=== PATIENT | female | born 1930 | race Caucasian/White ===

== ENCOUNTER → 2018-04-16 | Outpatient (CLI) | payer MEDICARE | END | disposition home or self-care (01) | LOC: RAH 12:48 | PROVIDERS: ATTEND Internal Medicine | DX: R60.9 Edema, unspecified (principal); I10 Essential (primary) hypertension; E78.5 Hyperlipidemia, unspecified | CPT/HCPCS: 93971 ==

== ENCOUNTER 2018-12-09 08:09 | Emergency (ER) | payer MEDICARE ==
[2018-12-09] MEDS ORDERED: SODIUM CHLORIDE 0.9% 1000ML 1,000 ML IV ONE (08:46)
[2018-12-09] MEDS ORDERED: CEFTRIAXONE SODIUM 1 GM ONE (08:46)
[2018-12-09] MEDS ORDERED: KETOROLAC TROMETHAMINE 30MG/ML ONE (08:46)
[2018-12-09] MEDS ORDERED: SODIUM CHLORIDE 0.9% 100 ML IV ONE (08:47)
[2018-12-09 09:09] LABS: BASOPHILS % (AUTO) 0.4 % (0.0-5.0); EOSINOPHILS % (AUTO) 0.9 % (0.0-8.0); HEMATOCRIT 38.9 % (36-48); LYMPHOCYTES % (AUTO) 21.4 % (21.0-51.0); MEAN CORPUSCULAR HGB CONC 34.2 g/dL (32.0-36.0); MEAN CORPUSCULAR VOLUME 96.3 fL (79-99); MONOCYTES % (AUTO) 12.5 % (3.0-13.0); NEUTROPHILS % (AUTO) 64.8 % (40.0-77.0); PLATELET COUNT (AUTO) 164 K/uL (130-400); RED BLOOD CELL COUNT(AUTO) 4.04 MIL/uL (4.00-5.50); RED CELL DISTRIBUTION WIDTH 13.5 % (11.0-15.5); WHITE BLOOD COUNT (AUTO) 6.6 K/uL (4.8-10.8)
[2018-12-09 09:16] LABS: CREATININE 0.9 mg/dL (0.5-1.5); POTASSIUM 4.3 mmol/L (3.5-5.1)
[2018-12-10] MEDS ORDERED: SIMV40TA5 PO (09:40)
[2018-12-10] MEDS ORDERED: METO-408 PO (09:47)
[2018-12-10] MEDS ORDERED: CHOL100046 PO (09:47)
[2018-12-10] MEDS ORDERED: ASPI-555 PO (09:47)
[2018-12-10] MEDS ORDERED: TYLENOL PO (09:47)
[2018-12-10] MEDS ORDERED: VIT1CAPS5 PO (09:47)
[2018-12-10] MEDS ORDERED: LISI30TA4 PO (09:47)
== END 2018-12-09 10:24 | disposition home or self-care (01) ==
LOC: EDH 08:09
DX: L03.114 Cellulitis of left upper limb (principal); E11.9 Type 2 diabetes mellitus without complications; I10 Essential (primary) hypertension; E78.5 Hyperlipidemia, unspecified
CPT/HCPCS: 36415; 73110; 80048; 85025; 93005; 96374; 96375; 99285; J0696; J1885; J7030

== ENCOUNTER → 2019-02-06 | Outpatient (CLI) | payer MEDICARE ==
[~2019-02-06] MED LIST: ASPI-555 PO; CEPH500C2 PO; CHOL100046 PO; LISI30TA4 PO; METO-408 PO; PRED10TA3 PO; PREG75 PO; SIMV40TA5 PO; TYLENOL PO; VIT1CAPS5 PO
== END | disposition home or self-care (01) ==
LOC: RAH 10:41
PROVIDERS: ATTEND Internal Medicine
DX: R10.9 Unspecified abdominal pain (principal); K59.09 Other constipation
CPT/HCPCS: 74018

== ENCOUNTER → 2019-04-11 | Outpatient (CLI) | payer MEDICARE | END | disposition home or self-care (01) | LOC: RAH 09:20 | PROVIDERS: ATTEND Internal Medicine | DX: N28.1 Cyst of kidney, acquired (principal) | CPT/HCPCS: 76770 ==